=== PATIENT | female | born 1965 | race Caucasian/White ===

== ENCOUNTER 2017-08-07 05:17 | Day surgery (SDC) | payer MEDICAID ==
[~2017-08-07] VITALS: Ht 167.6 cm; Wt 90.5 kg
[2017-08-07] MEDS ORDERED: GLUCOPHAGE1000 MG PO (06:07)
[2017-08-07] MEDS ORDERED: NORVASC10 MG PO (06:07)
[2017-08-07] MEDS ORDERED: ATIVAN2 MG PO (06:08)
[2017-08-07] MEDS ORDERED: BUPROPION XL300 MG PO (06:08)
[2017-08-07] MEDS ORDERED: VITAMIN D250000 UNIT PO (06:08)
[2017-08-07] MEDS ORDERED: NORVASC5 MG PO (06:09)
[2017-08-07] MEDS ORDERED: EFFEXOR100 MG PO (06:09)
[2017-08-07] MEDS ORDERED: LANTUS INSULIN10 ML SQ (06:10)
[2017-08-07 06:21] VITALS: Ht 167.6 cm; Wt 90.5 kg
[2017-08-07 07:01] LABS: BASOPHILS 0.3 % (0-2); EOSINOPHILS 1.6 % (0-7); HEMATOCRIT 31.8 % (36.0-48.0); HEMOGLOBIN 10.7 g/dL (12-16); LYMPHOCYTES 32.9 % (15-50); MCH 28.8 pg (26.0-34.0); MCHC 33.6 g/dL (31.0-37.0); MCV 85.5 fL (80.0-100.0); MONOCYTES 8.4 % (2-11); NEUTROPHILS 56.8 % (40-80); PLATELET COUNT 190 10x3/uL (130-400); RBC 3.72 10x6/uL (4.00-5.40); RDW 12.9 % (11.5-14.5); WBC 5.7 10x3/uL (4.8-10.8)
[2017-08-07 07:14] LABS: ANION GAP 15.1 mmol/L (8-16); CALCIUM 8.8 mg/dL (8.5-10.1); CARBON DIOXIDE 26.8 mmol/L (21.0-32.0); CREATININE - SERUM 1.5 mg/dL (0.6-1.3); POTASSIUM - SERUM 3.9 mmol/L (3.5-5.1)
--- NOTE | 2017-08-07 09:09 | NUR ---
0855- PT LEFT LATERAL POSITION, PASSING GAS. FAMILY AT BEDSIDE. FULL LIQUIDS OFFERED. DR. SMALLS SPOKE WITH FAMILY AT BEDSIDE ABOUT PROCEDURAL FINDINGS. WILL MONITOR.
--- NOTE | 2017-08-07 11:58 | NUR ---
0920- IV D/C'D, PT TOLERATED. CATHETER INTACT. 0930- DISCHARGE INSTRUCTIONS GIVEN, PT VERBALIZED UNDERSTANDING. PAPERWORK COMPLETED. 0943- PT DISCHARGED VIA WHEELCHAIR WITH FAMILY.
--- NOTE | 2017-08-07 12:43 | OP ---
PATIENT NAME: TURNER CAMPOS MEDICAL RECORD: [id number] :69 LOCATION:D.OPS ADMISSION DATE: SURGEON: LISSETH SMALLS DO DATE OF OPERATION: 08/07/2017 PROCEDURE: Colonoscopy with polypectomy. INDICATIONS FOR PROCEDURE: Family history of malignant neoplasm of digestive organs, hematochezia, diarrhea, generalized abdominal pain. SCOPE: Olympus video pediatric colonoscope. MEDICATIONS: Propofol 940 mg IV per anesthesia. WITHDRAWAL TIME: Greater than 30 minutes. ESTIMATED BLOOD LOSS: Minimal. COMPLICATIONS: None. FINDINGS: Informed consent was given. The patient was made comfortable with the above medication. After reaching an adequate level of sedation by slow IV push, the patient was placed on her left side. A digital rectal exam was performed and was normal other than some small external hemorrhoids without bleeding. The endoscope was then advanced under direct visualization through the rectum to the cecum with visualization of the appendiceal orifice and ileocecal valve. The scope was slowly withdrawn and mucosa was carefully examined. The prep quality was good. There were multiple polyps visualized on the examination. The first was the largest polyp and located in the ascending colon. It measured approximately 1.3-1.4 mm in diameter. It has a central depressed area, but did lift easily with normal saline. A snare cautery was used to remove the polyp in 1 piece and completely retrieved using a Hinojosa Net. In the transverse colon, there were two benign-appearing sessile polyps, which measured approximately 5-8 mm in diameter. They were both removed using a hot snare in 1 piece and completely retrieved. In the descending colon, there were two benign-appearing sessile polyps, which measured approximately 4-5 mm in diameter. They were both removed using hot snare in 1 piece and completely retrieved. There was evidence of mild diverticulosis in the descending and sigmoid colon. Retroflexion was performed in the rectum with visualization of small nonbleeding internal hemorrhoids. The scope was withdrawn from the patient. The patient tolerated the procedure well and there were no complications. IMPRESSION: 1. Multiple polyps as described above, removed using hot snare and saline injection for EMR technique. 2. Mild diverticulosis of the left side of the colon. 3. Internal and external hemorrhoids without bleeding. 4. Stool was collected on this study to submit for other studies to rule out infectious process causing loose stools and diarrhea. PLAN AND RECOMMENDATIONS: 1. Discharge home when recovery parameters are met. 2. Follow up biopsy specimens. 3. High fiber diet. OPERATIVE REPORT [id number] TURNER CAMPOS 4. Continue current medications. 5. Recall colonoscopy in 1 year based on the number and size of polyps removed on today's examination. TRANSINT:[id number] Voice Confirmation ID: [id number] DOCUMENT ID: [id number] LISSETH SMALLS DO at 1243 CC: [id number] DICTATION DATE: 08/07/1747 EMBEDDED CASE MANAGER: 08/07/17 09 [facility] 08/07/17 [facility] [address] [place] [address]
== END 2017-08-07 09:35 | disposition home or self-care (01) ==
LOC: D.OPS 05:17
PROVIDERS: Anesthesiology; Internal Medicine Gastroenterology
DX: D12.2 Benign neoplasm of ascending colon (principal); D12.3 Benign neoplasm of transverse colon; D12.4 Benign neoplasm of descending colon; K57.30 Diverticulosis of large intestine without perforation or abscess without bleeding; K64.4 Residual hemorrhoidal skin tags; K64.8 Other hemorrhoids; I10 Essential (primary) hypertension; E11.9 Type 2 diabetes mellitus without complications; J45.909 Unspecified asthma, uncomplicated; Z01.812 Encounter for preprocedural laboratory examination

== ENCOUNTER → 2017-11-14 10:11 | Outpatient (CLI) | payer MEDICARE, MEDICAID ==
[2017-08-07 06:21] VITALS: BMI 32.2
[~2017-11-14 10:11] MED LIST: ATIVAN2 MG PO; BUPROPION XL300 MG PO; EFFEXOR100 MG PO; GLUCOPHAGE1000 MG PO; LANTUS INSULIN10 ML SQ; NORVASC10 MG PO; NORVASC5 MG PO; VITAMIN D250000 UNIT PO
== END | disposition home or self-care (01) ==
LOC: D.US 10:11
DX: E11.22 Type 2 diabetes mellitus with diabetic chronic kidney disease (principal); I10 Essential (primary) hypertension

== ENCOUNTER → 2019-01-29 12:37 | Outpatient (CLI) | payer MEDICARE ==
[2017-08-07 06:21] VITALS: BMI 32.2
== END | disposition home or self-care (01) ==
LOC: D.RAD 12:37
PROVIDERS: ATTEND Allergy & Immunology
DX: J32.9 Chronic sinusitis, unspecified (principal)

== ENCOUNTER 2019-10-25 15:57 | Inpatient (IN) | payer MEDICARE ==
[~2019-10-25] VITALS: Ht 167.6 cm; Wt 88.2 kg
--- NOTE | ~2019-10-25 | CN ---
PATIENT NAME:TURNER CAMPOS MEDICAL RECORD: [id number] : 69 LOCATION:JUDITH.2311 ADMIT DATE: 10/25/19 ACCOUNT: [id number] CONSULTING PHYSICIAN: EVIN CAROLINA MD REFERRING PHYSICIAN: APPLE NAYAK MD DATE OF CONSULTATION: 10/25/2019 HISTORY OF PRESENT ILLNESS: Ms. Campos is a 53-year-old female. She started developing some sore throat symptoms roughly a week ago, maybe in Thanksgiving day 8 to 9 days ago a little bit and then slowly progressed then started 3-4 days ago, really began starting having difficulty swallowing and sore throat and I believe some fevers, but she was seen treated with antibiotics, but that she really could not take the oral antibiotics. She could not get the pills down and she has progressed to the point where she could not hardly swallow anything except for just liquids and she was admitted to the ICU. They got a CT scan, which showed some laryngeal edema. On talking to her, she is already in ICU. She has not been treated for a while. She said since she has gotten medications here she says she can swallow. She can get things down. She can get her secretions down and she is coughing up some material seems like from her lung. She is coughing up phlegm and a lot of stuff, but her throat feels better. She is not having any shortness of breath or breathing problems. PAST MEDICAL HISTORY: She has never had anything like this. She is on several medications, but she does not know any of them. She knows she is on amlodipine, but does not think she is on any other blood pressure medications specifically LAVON inhibitors. I tried to elicit. She does not know. She says she is not in any nonsteroidal anti-inflammatories. SHE IS ALLERGIC TO FEW MEDICATIONS, LISTED IN THE COMPUTER ARE PENICILLIN, SULFA, AND CIPRO, BUT SHE HAS NOT HAD ANY OF THOSE. She denies any food allergies. Her symptoms progressed kind of slowly. She does not have any event where she got choked on anything or anything hurt her throat to swallow, any traumatic events like that. PHYSICAL EXAMINATION: GENERAL: She is healthy-appearing. She is alert and oriented. Her voice might be a little bit hoarse, but she looks perfectly fine, in no distress whatsoever. No breathing difficulty. No stridor, no stertor. FACE: Normal, symmetric, no lesions. EYES: Sclerae and conjunctivae are normal. NOSE: No masses, polyps, or drainage. A little bit of right septal deviation, but not much. Oral mucosa looks good. ORAL CAVITY AND OROPHARYNX: Tongue protrudes in midline. Pharynx looks perfectly normal palate tonsils, posterior pharyngeal wall, the tonsil fossae, floor of the mouth and everything looks perfectly normal. NECK: No masses, no adenopathy, no thyromegaly, little bit of tenderness maybe around the thyroid cartilage below the hyoid bone when I moved it back and forth, but that is all nothing abnormal to palpation. Flexible laryngoscopy through the left side of the nose after decongestion ____ nasal cavity perfectly normal inferior middle turbinates, inferior middle meatus normal, and nasopharynx looks completely normal. No drainage, no masses. No inflammation. The posterior aspect of the palate is normal. Lateral pharyngeal magallanes are normal as is the posterior pharyngeal wall, look at the larynx. The CONSULT REPORT [id number] TURNER CAMPOS right AE fold little bit swollen, edematous, not so much the epiglottis, but the arytenoid little bit swollen as well. Postcricoid area, mildly swollen. The cords are both clearly visible open and mobile. Normal subglottis and upper trachea are normal. The piriforms were both normal. IMPRESSION: Swelling is mostly confined to AE fold and arytenoid, does not particularly look like angioedema, but does not really look like a supraglottitis as well. I do not see any evidence of foreign body, injury, or aphthous ulcer in the area, but it is hard to see the lateral portion of that over the false cord itself, but I get a good view from up above. CT scan shows a supraglottic laryngeal edema, couple of small lymph nodes on each side. Nothing too impressive. No evidence of any radiopaque foreign body or anything like that. The trachea looks clear. The esophagus was opened and below that level looks fine. IMPRESSION: Dysphagia, sore throat. Symptoms have been progressive. She is improving now on treatment really given the fever, white count of 13.8. The soreness and slow progression really seems like an infectious etiology. I do not think this represents angioedema. She really does not give a history of anything like a trauma or foreign body. Sometimes localized giant aphthous ulcer in unusual area can produce symptoms like this, but I think I would treat this as a supraglottitis even though things are typical for now. She seems to be responding well, but her on some Rocephin in addition to the clindamycin and the steroids just clear liquids. As soon as one of her family members or boyfriend is available, we will get a list of her medications and confirm her allergies and will see how she does. TRANSINT:[id number] Voice Confirmation ID: [id number] DOCUMENT ID: [id number] EVIN CAROLINA MD CC: [id number] DICTATION DATE: 10/26/19 0014 CONTINUOUS PROCESS MACHINE OPERATOR: 10/26/19 0554 [facility] IN [facility] [address] [place] [address]
--- NOTE | 2019-10-25 16:29 | NUR ---
THROAT SWAB OBTAINED, LABELED AT BS AND SENT TO LAB
[2019-10-25 16:47] LABS: BASOPHILS 0.2 % (0-2); EOSINOPHILS 0.3 % (0-7); HEMATOCRIT 37.2 % (36.0-48.0); HEMOGLOBIN 12.5 g/dL (12-16); IMMATURE GRANULOCYTES 0.2 % (0-5); LYMPHOCYTES 9.5 % (15-50); MCH 29.5 pg (26.0-34.0); MCHC 33.6 g/dL (31.0-37.0); MCV 87.7 fL (80.0-100.0); MEAN PLATELET VOLUME 10.2 fL (7.4-10.4); MONOCYTES 9.8 % (2-11); PLATELET COUNT 219 10x3/uL (130-400); RBC 4.24 10x6/uL (4.00-5.40); RDW 12.8 % (11.5-14.5); WBC 13.3 10x3/uL (4.8-10.8)
[2019-10-25 17:07] LABS: ANION GAP 18.9 mmol/L (8-16); CARBON DIOXIDE 23.1 mmol/L (21.0-32.0); CREATININE - SERUM 1.5 mg/dL (0.6-1.3)
[2019-10-25 17:12] LABS: ALBUMIN 3.7 g/dL (3.4-5.0); BILIRUBIN - TOTAL 0.66 mg/dL (0.2-1.3); PROTEIN - SERUM 8.2 g/dL (6.4-8.2)
[2019-10-25 20:20] VITALS: BP 107/84
--- NOTE | 2019-10-25 20:48 | NUR ---
PT SITTING UP IN BED. VSS. WILL CONTINUE TO MONITOR PATIENT. UPDATED PT ON PLAN OF CARE.
--- NOTE | 2019-10-25 21:43 | NUR ---
CLINDAMYCIN STOPPED AT THIS TIME.
[2019-10-25 22:15] VITALS: BP 145/81
--- NOTE | 2019-10-25 22:15 | NUR ---
RECEIVED PT TO ROOM 2311 VIA WHEELCHAIR ACCOMPANIED BY ER STAFF. ICU MONITORS ESTABLISHED WITH ALARMS ON, PT ALERT AND ORIENTED X 4, BED LOW, WHEELS LOCKED, CALL LIGHT IN REACH, DENIES ANY NEEDS, WILL MONITOR.
--- NOTE | 2019-10-25 22:35 | NUR ---
SOLOMON ALLEN ACCOUNT MANAGER [employer] ON UNIT TO SEE PT.
[2019-10-25 22:52] VITALS: BP 145/81; BMI 31.5
[2019-10-25 23:00] VITALS: BP 136/70
--- NOTE | 2019-10-25 23:03 | NUR ---
DR CAROLINA NOTIFIED OF CONSULT VIA TELEPHONE, ORDERS RECEIVED.
[2019-10-26] VITALS (24 sets, daily range): BP systolic 124–177; BP diastolic 60–98; Ht 167.6 cm; Wt 88.2 kg
--- NOTE | 2019-10-26 01:22 | NUR ---
PSYCH CHARGE AT BEDSIDE COMPLETING SUICIDE RISK ASSESSMENT PER HOSPITAL POLICY.
--- NOTE | 2019-10-26 01:35 | NUR ---
DR SHERIDAN NOTIFIED AND REVIEWED PT's BEHAVIOR AND ASSESSMENT RESULTS. PT IS A LOW RISK PER DR SHERIDAN. DR SHERIDAN STATED TO GIVE RESOURCES TO PT AT TIME OF DISCHARGE. NO FURTHER ORDERS AT THIS TIME. RESOURCES REVIEWED WITH PT AND SHE VERBALIZED UNDERSTANDING.
[2019-10-26 04:15] LABS: BASOPHILS 0.1 % (0-2); EOSINOPHILS 0 % (0-7); HEMATOCRIT 31.8 % (36.0-48.0); HEMOGLOBIN 10.5 g/dL (12-16); IMMATURE GRANULOCYTES 0.1 % (0-5); LYMPHOCYTES 6.9 % (15-50); MCH 29.2 pg (26.0-34.0); MCV 88.6 fL (80.0-100.0); MEAN PLATELET VOLUME 9.6 fL (7.4-10.4); MONOCYTES 2.2 % (2-11); NEUTROPHILS 90.7 % (40-80); PLATELET COUNT 193 10x3/uL (130-400); RBC 3.59 10x6/uL (4.00-5.40); RDW 12.6 % (11.5-14.5)
[2019-10-26 04:17] LABS: WBC 7.3 10x3/uL (4.8-10.8)
[2019-10-26 04:26] LABS: INR 1.16 (0.85-1.17); PROTIME 14.3 SECONDS (11.6-15.0)
[2019-10-26 04:27] LABS: APTT 39.3 SECONDS (22.8-39.4)
[2019-10-26 04:34] LABS: ALBUMIN 2.9 g/dL (3.4-5.0); ANION GAP 17.5 mmol/L (8-16); BILIRUBIN - TOTAL 0.35 mg/dL (0.2-1.3); CALCIUM 9.2 mg/dL (8.5-10.1); CREATININE - SERUM 1.3 mg/dL (0.6-1.3); MAGNESIUM - SERUM 1.9 mg/dL (1.8-2.4); PHOSPHOROUS 3.6 mg/dL (2.5-4.9); POTASSIUM - SERUM 4.5 mmol/L (3.5-5.1); PROTEIN - SERUM 6.8 g/dL (6.4-8.2)
--- NOTE | 2019-10-26 05:09 | NUR ---
AM LABS REVIEWED, NOTHING TO TREAT PER ELECTROLYTE PROTOCOL. PT RESTING WITH EYES CLOSED, VSS.
--- NOTE | 2019-10-26 07:00 | NUR ---
BEDSIDE REPORT RECEIVED. PT SITTING UP IN BED ALERT AND AWAKE. PT DENIES ANY ACUTE NEEDS OR DISTRESS AT THIS TIME. VSS. WILL CONT TO MONITOR.
--- NOTE | 2019-10-26 09:07 | NUR ---
UP IN BED AWAKE AT THIS TIME. VOICE HOARSE, SPEECH RASPY ADN QUIET. VSS. PT STATES SHE HAS HAD NEW MEDS PRESCRIBED FOR HER BUT SHE IS UNAWARE WHAT THEY ARE, AND THAT BOYFRIEND AND ROOMMATE WILL BE ABLE TO FIND OUT WHAT THOSE MEDS ARE. NO ACUTE DISTRESS NOTED. WILL CONTINUE PLAN OF CARE.
--- NOTE | 2019-10-26 09:37 | NUR ---
CONTINENT VOID NOTED. 400ML HENNA URINE TO BEDSIDE TOILET. PT PROVIDED OWN SHLOMO CARE. VSS. BOYFRIEND AT BEDSIDE. WILL CONTINUE PLAN OF CARE.
[2019-10-26] MEDS ORDERED: COZAAR25 MG PO (09:51)
[2019-10-26] MEDS ORDERED: TOPAMAX50 MG PO (09:52)
[2019-10-26] MEDS ORDERED: INDERAL 40 MG T40 MG PO (09:53)
[2019-10-26] MEDS ORDERED: CARBINOXAMIN PO (09:56)
[2019-10-26] MEDS ORDERED: ZOCOR10 MG PO (09:57)
[2019-10-26] MEDS ORDERED: TRADJENTA5 MG PO (09:57)
[2019-10-26] MEDS ORDERED: ABILIFY10 MG PO (09:58)
[2019-10-26] MEDS ORDERED: TRAZODONE HCL150 MG PO (09:59)
[2019-10-26] MEDS ORDERED: BENZTROPINE ME0.5 MG PO (10:00)
[2019-10-26] MEDS ORDERED: ZOFRAN4 MG PO (10:10)
[2019-10-26] MEDS ORDERED: ZITHROMAX250 MG PO (10:11)
--- NOTE | 2019-10-26 11:56 | NUR ---
UP IN BED AWAKE AT THIS TIME ON CELLPHONE. VSS. NO ACUTE DISTRESS NOTED. WILL CONTINUE PLAN OF CARE.
--- NOTE | 2019-10-26 12:12 | NUR ---
PER LAB, PT IS POSITIVE FOR FLU B. DROPLET ISOLATION PLACED. DR NAYAK NOTIFIED. VSS. WILL CONTINUE PLAN OF CARE.
--- NOTE | 2019-10-26 14:56 | NUR ---
PER DR NAYAK, OKAY FOR PT TO HAVE CLEAR LIQUID DIET IF TOLERATES. VSS. ALSO RECIEVED ORDERS TO START TAMIFLU. WILL CONTINUE PLAN OF CARE.
--- NOTE | 2019-10-26 15:07 | NUR ---
PT REFUSED CHG BATH STATING SHE HAD ALREADY GIVEN HERSELF A CLEAN UP WITH WIPES AND WILL USE THE CHG TOMORROW. VSS. NO ACUTE DISTRESS NOTED. WILL CONTINUE PLAN OF CARE.
[2019-10-26 16:10] LABS: APPEARANCE CLEAR (CLEAR); BILIRUBIN NEGATIVE (NEGATIVE); COLOR DK YELLOW (YELLOW); GLUCOSE 50 mg/dL (NEGATIVE); KETONE MODERATE mg/dL (NEGATIVE); NITRITE NEGATIVE (NEGATIVE); PROTEIN 1+ mg/dL (NEGATIVE); UROBILINOGEN NORMAL (NORMAL)
[2019-10-26 16:19] LABS: BACTERIA FEW /hpf (NEGATIVE); EPITHELIAL CELLS 0-5 /hpf (0-5); RED CELLS - URINE 0-5 /hpf (0-5); WHITE CELLS - URINE 0-5 /hpf (NEGATIVE)
--- NOTE | 2019-10-26 16:45 | NUR ---
PER DR NAYAK; RESTART HOME MEDS: LOSARTAN, INDERAL, TRADJENTA, ABILIFY, LORAZEPAM, AND AMLODIPINE.
--- NOTE | 2019-10-26 17:53 | NUR ---
PT TOLERATES CLEAR LIQUID DIET AT THIS TIME AND TOLERATES TAKING PO MEDS. VSS. WILL CONTINUE PLAN OF CARE.
[2019-10-27] VITALS (15 sets, daily range): BP systolic 90–147; BP diastolic 58–84
--- NOTE | 2019-10-27 01:55 | NUR ---
WATER PROVIDED PER REQUEST, PT DENIES ANY OTHER NEEDS, CALL LIGHT IN REACH.
[2019-10-27 04:13] LABS: ALBUMIN 2.7 g/dL (3.4-5.0); ANION GAP 14.9 mmol/L (8-16); BASOPHILS 0 % (0-2); BILIRUBIN - TOTAL 0.2 mg/dL (0.2-1.3); CALCIUM 9.2 mg/dL (8.5-10.1); CARBON DIOXIDE 22.4 mmol/L (21.0-32.0); CREATININE - SERUM 1.1 mg/dL (0.6-1.3); EOSINOPHILS 0 % (0-7); HEMATOCRIT 32.3 % (36.0-48.0); HEMOGLOBIN 10.6 g/dL (12-16); IMMATURE GRANULOCYTES 0.3 % (0-5); LYMPHOCYTES 8.4 % (15-50); MCH 29.1 pg (26.0-34.0); MCHC 32.8 g/dL (31.0-37.0); MCV 88.7 fL (80.0-100.0); MONOCYTES 6.9 % (2-11); NEUTROPHILS 84.4 % (40-80); PHOSPHOROUS 3.2 mg/dL (2.5-4.9); PLATELET COUNT 206 10x3/uL (130-400); POTASSIUM - SERUM 4.3 mmol/L (3.5-5.1); PROTEIN - SERUM 6.3 g/dL (6.4-8.2); RBC 3.64 10x6/uL (4.00-5.40); RDW 12.5 % (11.5-14.5)
--- NOTE | 2019-10-27 05:22 | NUR ---
AM LABS REVIEWED, NOTHING TO TREAT PER ELECTROLYTE PROTOCOL. ASSISTED PT TO CHAIR, CALL LIGHT IN REACH, DENIES ANY OTHER NEEDS.
--- NOTE | 2019-10-27 08:22 | NUR ---
UP IN BED AT THIS TIME AWAKE AND ALERT. DENIES ANY NEEDS. VSS. STATES THAT HER THROAT FEELS MUCH BETTER TODAY THAN IT DID YESTERDAY AND IT NO LONGER FEELS SORE AND THAT SHE CAN TOLERATE MEDS AND CLR LIQUID DIET WITHOUT ANY DIFFICULTIES. PT ALSO STATES THAT SHE FEELS THAT SHE COULD TOLERATE HER DIET TO BE UPGRADED TO SOLID FOODS. WILL SPEAK WITH PHYSICIAN REGARDING THIS WHEN THERY ARRIVE TO SEE PT. NO ACUTE DISTRESS NOTED. WILL CONTINUE PLAN OF CARE.
--- NOTE | 2019-10-27 10:24 | NUR ---
NO ACUTE DISTRESS NOTED. VSS. CALL LIGHT IN REACH. WILL CONTINUE PLAN OF CARE.
--- NOTE | 2019-10-27 12:51 | NUR ---
DR NAYAK HERE AT THIS TIME, REVISED MED LIST BECAUSE OF BRADYCARDIA LAST NIGHT AFTER TAKING THE INDERAL. ALSO STATED OKAY FOR PT TO TRANSFER TO THE FLOOR. PT UP IN BED VISITING WITH FAMILY. NO ACUTE DISTRESS NOTED. VSS. WILL CONTINUE PLAN OF CARE.
--- NOTE | 2019-10-27 15:08 | NUR ---
REPORT CALLED TO RECIEVING NURSE TO TRANSFER PT.
--- NOTE | 2019-10-27 15:27 | NUR ---
PT TRANSFERRED TO ROOM 2140 AT THIS TIME VIA WHEELCHAIR ACCOMPANIED BY HOSPITAL STAFF WITH ALL PERSONAL ITEMS. NO ACUTE DISTRESS NOTED. NO FURTHER ACTIONS.
--- NOTE | 2019-10-27 15:27 | NUR ---
PATIENT ARRIVED TO THE FLOOR VIA WHEELCHAIR. WALKED TO THE BED WITH NO SIGNS OR SYMPTOMS OF PAIN OR DISCOMFORT. VITALS ARE STABLE. BED IS IN LOW POSITION A ND CALL LIGHT IS IN REACH
--- NOTE | 2019-10-27 19:30 | NUR ---
REPORT RECEIVED. PT RESTING IN BED RR EVEN AND UNLABORED ON RA. NO S/Sx OF DISTRESS NOTED AT THIS TIME. UNABLE TO FLUSH IV TO LEFT WRIST, D/C WITH CATHETER TIP INTACT. 22G RESTARTED TO LEFT AC X1 ATTEMPT. PT TOLETARTED WELL. NO NEEDS EXPRESSED. SRX2, CALL LIGHT IN REACH. WILL CTM.
[2019-10-28 00:01] VITALS: BP 130/69
[2019-10-28 05:28] VITALS: BP 117/69
[2019-10-28 06:21] LABS: BASOPHILS 0 % (0-2); EOSINOPHILS 0 % (0-7); HEMATOCRIT 32.3 % (36.0-48.0); HEMOGLOBIN 10.6 g/dL (12-16); IMMATURE GRANULOCYTES 0.3 % (0-5); LYMPHOCYTES 9.2 % (15-50); MCH 28.6 pg (26.0-34.0); MCHC 32.8 g/dL (31.0-37.0); MCV 87.1 fL (80.0-100.0); MEAN PLATELET VOLUME 10.1 fL (7.4-10.4); MONOCYTES 5.3 % (2-11); NEUTROPHILS 85.2 % (40-80); PLATELET COUNT 226 10x3/uL (130-400); RBC 3.71 10x6/uL (4.00-5.40); RDW 12.4 % (11.5-14.5); WBC 7.2 10x3/uL (4.8-10.8)
[2019-10-28 06:50] LABS: ALBUMIN 2.8 g/dL (3.4-5.0); ANION GAP 14.6 mmol/L (8-16); BILIRUBIN - TOTAL 0.15 mg/dL (0.2-1.3); CALCIUM 9.3 mg/dL (8.5-10.1); CARBON DIOXIDE 22.7 mmol/L (21.0-32.0); CREATININE - SERUM 1.1 mg/dL (0.6-1.3); PHOSPHOROUS 3.8 mg/dL (2.5-4.9); POTASSIUM - SERUM 4.3 mmol/L (3.5-5.1); PROTEIN - SERUM 6.8 g/dL (6.4-8.2)
--- NOTE | 2019-10-28 07:10 | NUR ---
PT AWAKE AND ORIENTED SITTING ON SIDE OF BED. COMPLAINTS OF WANTING TO GO HOME. NO OHER COMPLAINTS OR CONCERNS, ALL QUESTIONS ANSWERED TO THE BEST OF MY ABILITY. CL IN REACH, SRX2. NO FAMILY PRESENT AT BEDSIDE.
[2019-10-28 08:00] VITALS: BP 148/70
--- NOTE | 2019-10-28 09:12 | NUR ---
PT AWAKE AND ORIENTED, STATES SHE'S DEVELPED A HUGE CRAVING FOR APPLEJUICE DURING HER TIME HERE. INFORMED HER SHE CAN'T HAVE TOO MUCH D/T HER DIABETIC RESTRICTIONS. PT IS PLESANT AND HAS NO COMLAINTS OTHER THAN HOW POSITIVELY BORED SHE IS AND HER DESIRE TO GO HOME SOON. CL IN REACH, SRX2, NO FAMILY PRESENT AT BEDSIDE.
--- NOTE | 2019-10-28 10:16 | NUR ---
ENT DR. SCHERER PT, STATES HE WILL F/U WITH HER A WEEK POST D/C.
--- NOTE | 2019-10-28 10:47 | NUR ---
I have reviewed this patient and I concur with the Shift Assessment completed by the Licensed Practical Nurse today this shift.
--- NOTE | 2019-10-28 11:49 | NUR ---
PT REQUESTS TO SPEAK TO THE DR. BHARDWAJ BECAUSE SHE WANTS TO GO HOME TODAY, ENT INFORMED HER HE DIDNT SEE WHY SHOULD COULDN'T GO HOME. PT UNDERSTANDS SHE HAS TO WAIT. CL IN REACH, SRX2.
[2019-10-28 12:00] VITALS: BP 136/86
--- NOTE | 2019-10-28 14:59 | NUR ---
PT AWAKE AND ORIENTED, STILL HOPEFUL TO GO HOME. ONLY COMPLAINTS OF BOREDOME. CL IN REACH, SRX2.
[2019-10-28] MEDS ORDERED: TAMIFLU75 MG PO (15:03)
[2019-10-28] MEDS ORDERED: OMNICEF300 MG PO (15:06)
--- NOTE | 2019-10-28 16:54 | NUR ---
PTESCORTED OUT VIA WHEELCHAIR TO HUSBANDS POV.
--- NOTE | 2019-10-28 17:07 | MORECARE ---
CASE MANAGEMENT DISCHARGE SUMMARY PATIENT: TURNER CAMPOS UNIT: [id number] ADM DATE: 10/25/19 AGE: 53 : 69 SEX: F ROOM/BED: D.5340 AUTHOR: PATRICIA,DOC PHYSICIAN: REFERRING PHYSICIAN: APPLE NAYAK MD DATE OF SERVICE: 10/28/19 Discharge Plan Patient Name: TURNER CAMPOS Facility: [facility]:[place] : 1965 Planned Disposition: Home Anticipated Discharge Date: 10/28/19 Discharge Date: 10/28/2019 Expected LOS: 3 Initial Reviewer: [email or web address] Initial Review Date: 10/28/2019 Generated: 10/28/19 6:06 pm Comments DCP- Discharge Planning Updated by [email or web address]: Isaias Pineda on 10/28/19 4:[address] Patient Name: TURNER CAMPOS Admission Status: ER Accout number: [id number] Admission Date: 10-25-2019 : 1965 Admission Diagnosis: Attending: APPLE NAYAK Current LOS: 3 Anticipated DC Date: 10-28-2019 Planned Disposition: Home Primary Insurance: [facility] MEDICARE SOLUTIONS Discharge Planning Comments: CM MET WITH PT IN ROOM TO DISCUSS DISCHARGE PLANNING AND NEEDS. PT REPORTS LIVING AT HOME INDEPENDENTLY WITH HER PARTNER / ROOMMATE. PT HAS NO MEDICAL EQUIPMENT AND NO OUTSIDE SERVICES ASSISTING IN THE HOME. CM DISCUSSED AVAILABILITY OF HOME HEALTH, REHAB SERVICES AND MEDICAL EQUIPMENT. PT DENIES DISCHARGE NEEDS, REPORTS HER ROOMMATE WILL PICK HER UP FOR DISCHARGE HOME. IMPORTANT MESSAGE FROM MEDICARE PROVIDED AND EXPLAINED. Product Support Engineer: Isaias Pineda DCPIA - Discharge Planning Initial Assessment Updated by [email or web address]: Isaias Pineda on 10/28/19 4:59 pm * Is the patient Alert and Oriented? Yes * How many steps to enter\exit or inside your home? * PCP DR. ANDRADE * [facility] * Preadmission Environment Home with Family * ADLs Independent * Equipment None * Other Equipment NO MEDICAL EQUIPMENT PROVIDER PERFERENCE * List name and contact numbers for known caregivers / representatives who currently or will assist patient after discharge: ISAIAS COVINGTON, PARTNER, * Verbal permission to speak to the caregivers and representatives has been obtained from the patient. N/A * Community resources currently utilized None * Please name any agencies selected above. NONE * Additional services required to return to the preadmission environment? No * Can the patient safely return to the preadmission environment? Yes * Has this patient been hospitalized within the prior 30 days at any hospital? No Coverage Notice Reviewer: [email or web address] Matthieu Pineda Notice Issued Date-Time: 10/28/2019 15:38 Notice Type: IM Discharge Notice Notice Delivered To: Patient Relationship to Patient: [employer] Operations [employer] Chief Name: Delivery Method: HAND - Hand Delivered Joanna Days: Prior Verbal Notification: Recipient Understood Notice: Yes Recipient Signature: Yes Med Rec Note Co-signed by Attending: Coverage Notice Comment: Patient Name: TURNER CAMPOS Page [phone] at 1707 All edits/amendments must be made on the electronic document DICTATION DATE: 10/28/191705 RESIDENTIAL TREATMENT COUNSELOR: LADONNA 10/28/191705 RPT#: [id number] DC DATE:10/28/19 STATUS: DIS IN [facility] [address] [place] [address] END OF REPORT
== END 2019-10-28 16:55 | disposition home or self-care (01) | DRG 194 ==
LOC: D.ER 15:57 → D.M2 20:14 → D.MS 20:14 → D.ICU 21:49 → D.M2 10-27 15:26
PROVIDERS: Emergency Medicine; ADMIT Internal Medicine Nephrology; ATTEND Internal Medicine Nephrology
DX: J10.1 Influenza due to other identified influenza virus with other respiratory manifestations (principal); N17.9 Acute kidney failure, unspecified; J39.8 Other specified diseases of upper respiratory tract; E11.65 Type 2 diabetes mellitus with hyperglycemia; F41.8 Other specified anxiety disorders; D64.9 Anemia, unspecified; I10 Essential (primary) hypertension; J44.9 Chronic obstructive pulmonary disease, unspecified; R06.1 Stridor